=== PATIENT | male | born 1980 | race Caucasian/White ===

== ENCOUNTER 2017-07-01 08:22 | Emergency (ER) | payer BC, SELFPAY ==
[2017-07-01] MEDS ORDERED: Lidocaine 1% 20 ML MDV ONE (08:35)
== END 2017-07-01 09:08 | disposition home or self-care (01) ==
LOC: NAV ERS 08:22
DX: S61.411A Laceration without foreign body of right hand, initial encounter (principal); W26.0XXA Contact with knife, initial encounter; Y93.F9 Activity, other caregiving
CPT/HCPCS: 12002; J2001